=== PATIENT | male | born 1960 | race Caucasian/White ===

== ENCOUNTER 2019-05-19 22:42 | Emergency (ER) | payer BC ==
[~2019-05-19] VITALS: Ht 172.7 cm; Wt 108.9 kg
[~2019-05-19 22:42] MED LIST: AMLODIPINE BESY10 MG PO; LISINOPRIL20 MG PO; LISINOPRIL5 MG PO; LIVALO2 MG PO; TOPROL XL100 MG PO
[2019-05-19 23:18] LABS: ABSOLUTE NEUTROPHILS 7.4 thou/uL (1.4-8.2); BASOPHILS 0.4 % (0.0-2.0); EOSINOPHILS 3.9 % (0.0-3.0); HEMATOCRIT 40.7 % (42.0-52.0); HEMOGLOBIN 13.5 gm/dL (14.0-18.0); LYMPHOCYTES 15.2 % (24.0-44.0); MCH 27.7 pg (26.0-34.0); MCV 83.7 fL (80.0-100.0); PLATELET COUNT 178 thou/uL (150-400); POLYS 73.5 % (36.0-66.0); RBC 4.86 mil/uL (4.50-6.00); RDW 13.2 % (10.5-14.5)
[2019-05-19 23:25] LABS: ANION GAP 8 mmol/L (7-16); BUN 17 mg/dL (7-18); CALCIUM 9.2 mg/dL (8.5-10.1); CHLORIDE 104 mmol/L (98-107); CO2 28 mmol/L (21-32); CREATININE 1.2 mg/dL (0.7-1.3); GLUCOSE 103 mg/dL (74-106); POTASSIUM 3.7 mmol/L (3.5-5.1); SODIUM 140 mmol/L (136-145)
[2019-05-19 23:33] LABS: TROPONIN-I <0.06 ng/mL (<0.06)
[2019-05-19] MEDS ORDERED: CARVEDILOL12.5 MG PO (23:35)
[2019-05-19] MEDS ORDERED: LISINOPRIL2.5 MG PO (23:35)
[2019-05-19] MEDS ORDERED: PRAVASTATIN SOD20 MG PO (23:36)
[2019-05-19] MEDS ORDERED: NORVASC 2.5 MG2.5 M1 PO (23:36)
[2019-05-20 03:11] VITALS: BP 117/71
--- NOTE | 2019-05-20 09:51 | EKG ---
[address] [address] [place] [address] ELECTROCARDIOGRAM REPORT Name: LAISHA JOHANSEN 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1960 Requested By: Bart Martinez Order Number: [id number] MD: Stephen Diaz Measurements Intervals [place] Rate: 66 P: 28 [place]: 147 QRS: 3 QRSD: 94 T: 64 QT: 385 QTc: 404 Interpretive Statements Sinus rhythm Poor R wave progression Compared to ECG 06/30/2011 23:00:39 No significant change was found Electronically Signed On 05-20-2019 9:51:12 [employer]PERIMENT[employer] by Stephen Diaz [email or web address] <ELECTRONICALLY SIGNED> By: Stephen Diaz MD, [facility] 05/20/19 [id number] Stephen Diaz MD, FACC /EPI
--- NOTE | 2019-05-20 09:51 | EKG ---
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
== END 2019-05-20 03:13 | disposition home or self-care (01) ==
LOC: ER 22:42
PROVIDERS: Emergency Medicine
DX: R07.89 Other chest pain (principal); I10 Essential (primary) hypertension; E78.00 Pure hypercholesterolemia, unspecified; E66.9 Obesity, unspecified; Z68.36 Body mass index [BMI] 36.0-36.9, adult; Z95.5 Presence of coronary angioplasty implant and graft

== ENCOUNTER → 2019-12-13 | Outpatient (CLI) | payer BC ==
[~2019-12-13] MED LIST changes: +CARVEDILOL12.5 MG PO; +LISINOPRIL2.5 MG PO; +NORVASC 2.5 MG2.5 M1 PO; +PRAVASTATIN SOD20 MG PO
== END ==
LOC: SJCVCIMAG 07:41
PROVIDERS: ATTEND Internal Medicine
DX: I25.10 Atherosclerotic heart disease of native coronary artery without angina pectoris (principal); I10 Essential (primary) hypertension; E78.5 Hyperlipidemia, unspecified; Z98.61 Coronary angioplasty status; Z86.718 Personal history of other venous thrombosis and embolism